=== PATIENT | female | born 1935 | race Caucasian/White ===

== ENCOUNTER 2018-04-22 11:43 | Inpatient (IN) | payer MEDICARE, BC ==
[~2018-04-22] VITALS: Ht 152.4 cm; Wt 87.1 kg
[~2018-04-22 11:43] MED LIST: ACCUPRIL5 MG PO; ADULT LOW DOSE81 MG PO; CLARITIN10 M2 PO; HYDROCHLOROTHIA25 MG PO; LOVASTATIN20 MG PO; VISION VITAMIN1 EACH PO; VITAMIN B-121000 MC1 PO; VITAMIN D31000 UNI1 PO
--- NOTE | 2018-04-29 12:08 | NUR ---
PATIENT HERE TODAY FOR PREADMISSION APPOINTMENT. SHE IS SCHEDULED TO HAVE A LEFT TOTAL KNEE ARTHROPLASTY DONE ON 05/17/18. SHE HAS A FRIEND (NAS) WHO WILL BE HERE TO TRANSPORT HER HOME AND STAY WITH HER FOR 2-3 WEEKS SINCE SHE LIVES ALONE. SHE STATES SHE HAS A HANDICAP ACCESSIBLE HOME WITH RAISED TOILETS, GRAB BARS, WALK IN SHOWER AND SHOWER BENCH AMONG OTHER THINGS. SHE STATES SHE HAS BEEN DOING PHYSICAL THERAPY AT [facility] BUT RECIEVED A PHONE CALL ABOUT A CLASS. I SPOKE TO HER ABOUT WHAT THE CLASS ENTAILED AND WHY SHE WAS GETTING THE PHONE CALL. CALL PLACED TO [facility] AND THE PATIENT WILL BE ATTENDING THE NEXT JOINT BOOT CAMP ON AT 530 PM. SHE ALSO INQUIRED ABOUT HAVING PHYSICAL THERAPY COME TO HER HOME AFTER SURGERY FOR 2 WEEKS. THIS INFORMATION WILL BE SENT TO DR VICKERS OFFICE AND DE PLANNING FOR FURTHER FOLLOW UP.
--- NOTE | 2018-05-04 09:46 | NUR ---
PER REQUEST OF PRE ADMIT NURSE I CALLED THE PT SHE REPORTEDLY HAD SOME QUESTIONS TO ASK ME. PT WAS CURIOUS ABOUT HAVING HOME HEALTH PT COME TO HER HOUSE FOR THE FIRST COUPLE OF WEEKS AFTER SHE HAS HER SURGERY. I EXPLAINED TO HER THAT IT WILL DEPEND ON HOW SHE IS DOING AFTER SURGERY AND WHILE SHE IS HERE IN THE HOSPITAL. TOLD HER WE WOULD TALK WHILE SHE IS HERE AND DETERMINE THEN IF THIS IS SOMETHING SHE NEEDS. ALSO GAVE PT THE PHONE # FOR CASE MANAGEMENT SO SHE COULD CALL IF SHE HAD ANY OTHER QUESTIONS PRIOR TO HER SURGERY.
[2018-05-17] MEDS ORDERED: METFORMIN HCL500 MG PO (06:17)
[2018-05-17] MEDS ORDERED: VIACTIV SOFT C1 EACH PO (06:18)
--- NOTE | 2018-05-17 09:05 | NUR ---
05/17/18 0905 Ludy Newton 0849 PT ARRIVED WITH NASAL AND ORAL AIRWAY IN PLACE, ON 10L VIA MASK. RESP EVEN AND UNLABORED. BP DECREASED LOGGING ASSISTANT AT BEDSIDE, MEDICATION GIVEN BY LOGGING ASSISTANT. PT NONAROUSABLE. 0855 PT BP INCREASING AND REMAINS NONAROUSABLE WITH AIRWAYS IN PLACE. 09 O2 DECREASED TO 6L VIA MASK. O2 SAT 100%.
--- NOTE | 2018-05-17 10:15 | NUR ---
PATIENT ARRIVED FROM PACU. REPORT FROM YARI COREY. VSS. PATIENT DROWSY BUT EASY TO AROUSE. PATIENT DENIES PAIN AND NAUSEA. ON 2LPM OXYGEN VIA NC SAT OF 96%. DAUGHTER, BRITTANI, AT BEDSIDE. DRESSING CDI. SPINAL AT T8. CRYOCUFF ON, SCDS ON, BIN HOSE ON. TOLERATING ICE WATER. CALL LIGHT WITHIN REACH. NO FURTHER REQUESTS AT THIS TIME.
--- NOTE | 2018-05-17 11:07 | OR ---
[facility] [address] [place] [address] Signed DATE OF OPERATION: 05/17/2018 SURGEON: Chele Kay MD PREOPERATIVE DIAGNOSIS: Severe degenerative joint disease, left knee. POSTOPERATIVE DIAGNOSIS: Severe degenerative joint disease, left knee. PROCEDURE PERFORMED: Left total knee arthroplasty with computer navigation. BAKE ROOM WORKER: PAU Freire. Corie was present in critical positioning, retraction, and wound closure. ANESTHESIA: Spinal with sedation. TOURNIQUET TIME: 55 minutes. BLOOD LOSS: Minimal. IMPLANTS: Tamie Triathlon size 3, 11 mm insert, and a 33 mm patella. BRIEF HISTORY: Rhonda is an 83-year-old female, who suffered from her arthritis and was not significantly improved with nonoperative treatment. Risks, benefits, and alternatives of operative treatment were discussed with her. DESCRIPTION OF PROCEDURE: Once medical clearance was obtained, she was taken to the operating room. After adequate anesthesia, she was placed on operating table. All downside pressure points well padded. The left leg was placed in well-padded proximal thigh tourniquet and placed on a hip bump. The leg was then prepped and draped in a standard sterile fashion, exsanguinated using an Esmarch bandage, and tourniquet inflated to 250 mmHg. Electronically Signed By: CHELE KAY MD 05/17/18 1107 PATIENT NAME: RHONDA JEROME OPERATIVE REPORT DATE OF : 35 REPORT #: [id number] PHYSICIAN: CHELE KAY MD PCP: JONO CORONA REPORT IS CONFIDENTIAL AND NOT TO BE RELEASED WITHOUT AUTHORIZATION [facility] [address] [place], [place] [address] Signed Standard anterior approach was taken through skin and subcutaneous tissue. Median parapatellar arthrotomy was performed. The infrapatellar fat pad was excised and the MCL was elevated of a sleeve around the posterior medial corner. The anterior horns of menisci were transected as was the ACL. The PCL was found to be intact. The navigation guide was pinned to the distal femur and the femur was registered with the computer. The cutting block was then pinned in neutral mechanical axis, and set to take 11 mm off. The distal femoral cut was made and the distal femur was sized to a 3. Osteophytes were removed as we went. The AP cutting block was then pinned in neutral alignment with epicondylar axis. The anterior, posterior, and chamfer cuts were made. Attention was then turned to the proximal tibia. Menisci removed to allow better visualization. The navigation guide was pinned to the proximal tibia and the tibia was registered with the computer. The cutting block was then pinned to 3 mm on the medial side and aligned with the mechanical axis. The cut was made with care taken to protect the patellar tendon and MCL. Bone was removed as were any meniscal remnants. Posterior osteophytes removed off the femur and posterior release was performed. The flexion and extension gaps were sized, found to be symmetric at 11 mm. The trials were then positioned, knee was taken through range of motion and found to be quite stable. The patella was cut, sized, and drilled for 32 mm patella. The knee was flexed. The drill holes were placed in the distal femur. The trials were removed. The proximal tibia was finished using the keel punch. The bone surfaces were pulse lavaged and packed with dry Ray-Courtney. Cement was mixed. When it reached to proper consistency, was placed all implants and all bone surfaces. Tibia was impacted into position first followed by the polyethylene. The femur was then impacted in position. The knee was extended and nicely loaded. All excess cement was removed as we went. The patella was clamped into position. Again any remaining cement was removed. The cement was allowed to harden. Once it hardened sufficiently, the knee was flexed. Any remaining overflow was removed using osteotomes. The knee was pulse lavaged at intervals throughout the procedure. Using a total of 3 L antibiotic irrigation. The periarticular soft tissues were injected using 100 mL ropivacaine and Toradol mixture. The arthrotomy was then closed using #1 0 Stratafix for the subcutaneous tissue, and erik for the skin. A ZACHARIAH wound VAC dressing was then placed and an Trev wrap. She was awakened and taken to the recovery room in satisfactory condition. All sponge, needle, and instrument counts were correct. Chele Kay MD BA/MODL /[id number] Electronically Signed By: CHELE KAY MD 05/17/18 1107 PATIENT NAME: RHONDA JEROME OPERATIVE REPORT DATE OF : 35 REPORT #: [id number] PHYSICIAN: CHELE KAY MD PCP: JONO CORONA REPORT IS CONFIDENTIAL AND NOT TO BE RELEASED WITHOUT AUTHORIZATION [address] [address] Signed Copies: ~ Electronically Signed By: CHELE KAY MD 05/17/18 1107 PATIENT NAME: RHONDA JEROME OPERATIVE REPORT DATE OF : 35 REPORT #: [id number] PHYSICIAN: CHELE KAY MD PCP: JONO CORONA REPORT IS CONFIDENTIAL AND NOT TO BE RELEASED WITHOUT AUTHORIZATION
--- NOTE | 2018-05-17 11:12 | NUR ---
VITAL SIGNS DUE. PATIENT RESTING WITH DAUGHTER AT BEDSIDE. VSS. PATIENT TOLERATING ICE WATER. DRESSING CDI, CRYOCUFF IN PLACE, BIN HOSE ON, SCDS ON, HEEL PROTECTORS ON. CALL LIGHT WITHIN REACH. NO FURTHER REQUESTS AT THIS TIME.
--- NOTE | 2018-05-17 13:01 | NUR ---
PATIENT IS RESTING WITH EYES CLOSED RR OF 14. EASILY ROUSABLE. VSS. PATIENT STATES SHE IS "NOT HUNGRY", DENIES PAIN AND NAUSEA. FRIEND AT BEDSIDE. CALL LIGHT WITHIN REACH. DRESSING CDI, CRYOCUFF ON, SCDS ON, BIN HOSE ON, HEEL PROTECTORS IN PLACE. NO FURTHER REQUESTS.
--- NOTE | 2018-05-17 13:42 | NUR ---
ASSESSMENT DONE. PATIENT DROWSY BUT EASILY AROUSABLE. PATIENT STATED SHE WAS NOT HUNGRY AND DID NOT NEED TO VOID. DENIES NAUSEA AND PAIN. DRESSING CDI, CRYOCUFF ON, SCDS ON, BIN HOSE ON, HEEL PROTECTORS ON. CALL LIGHT WITHIN REACH. FRIEND AT BEDSIDE. NO FURTHER REQUESTS AT THIS TIME.
--- NOTE | 2018-05-17 14:21 | NUR ---
PATIENT RESTING IN BED WITH EYES CLOSED. FAMILY BEDSIDE. PATIENT IS VERY TIRED. FRESHWATER GIVEN. CALL LIGHT IN REACH. NO FURTHER NEEDS AT THIS TIME.
--- NOTE | 2018-05-17 15:15 | NUR ---
PATIENT REPORTING NAUSEA AFTER PO ZOFRAN GIVEN. NOTIFIED. ORDER ENTERED FOR PROCHLORPERAZINE. MD ORDERED TORADOL BE HELD DUE TO CKD STAGE III.
--- NOTE | 2018-05-17 15:34 | NUR ---
MEDICATIONS DUE. PATIENT REPORTING NAUSEA, MEDICATION GIVEN (SEE MAR). PATIENT DROWSY, FALLS BACK TO SLEEP IMMEDIATELY, RESPIRATIONS 12. HOSPITALIST ROUNDED ON PATIENT. DAUGHTERS AT BEDSIDE. OXYGEN 94% ON 2 LPM. PATIENT TOLERATING SIPS OF WATER. DRESSING CDI, CRYOCUFF ON, SCDS ON, BIN HOSE ON, HEEL PROTECTORS ON. CALL LIGHT WITHIN REACH. NO FURTHER REQUESTS AT THIS TIME.
--- NOTE | 2018-05-17 15:58 | NUR ---
TALKED TO DR WHITE REGARDING PT. HE SAID TO GO AHEAD AND GIVE TORADOL AND WE WILL WATCH LABS. BUT TO GO EASY ON NARCOTICS FAMILY STATES THEY ARE SENSITIVE.
--- NOTE | 2018-05-17 16:09 | NUR ---
PATIENT HAS BEEN UP TO VOID, BEDSIDE COMMODE, WITH PHYSICAL THERAPY. UNABLE TO VOID. BLADDER SCAN 336 ML.
--- NOTE | 2018-05-17 17:31 | NUR ---
BLADDER SCANNED 453 ML. PATIENT AGREED TO HAVE A BISHOP PLACED. BISHOP PLACED PER PROTOCOL. PATIENT RESTING WITH EYES CLOSED RESPIRATIONS 12. CALL LIGHT WITHIN REACH. BED ALARM ON. DAUGHTER AT BEDSIDE. NO FURHTER REQUESTS AT THIS TIME.
--- NOTE | 2018-05-17 18:09 | NUR ---
PATIENT POST OP DAY 0 LEFT TOTAL KNEE. PATIENT DENIES PAIN. NAUSEA REPORTED PRN MEDICATIONS GIVEN. BISHOP PLACED FOR BLADDER SCAN OF 453 ML. ON 2 LPM OXYGEN VIA NC. PATIENT DROWSY. DAUGHTER, BRITTANI, AT BEDSIDE. HAS NOT USED CALL LIGHT. BED ALARM ON.
--- NOTE | 2018-05-17 18:36 | NUR ---
CALLED DR VICKERS AND UPDATED ON PATIENT'S STATUS. ASKED THAT WE NOT GIVE THE PATIENT ANYTHING ELSE. NO FURTHER ORDERS.
--- NOTE | 2018-05-17 18:45 | NUR ---
PATIENT IN BED RESTING WITH EYES CLOSED. PATIENT IS VERY SLEEPY AND WONT WAKE UP WHEN CONTROL SYSTEMS ENG IS TRYING TO TAKE VITALS. DAUGHTER BEDSIDE. FRESHWATER GIVEN. CALL LIGHT IN REACH. NO FURTHER NEEDS AT THIS TIME.
--- NOTE | 2018-05-17 19:15 | NUR ---
IN ROOM FOR REPORT, PT IS DROWSY. CALL LIGHT IS WITHIN REACH.
--- NOTE | 2018-05-17 21:45 | NUR ---
PT IS HAVING A DIFFICULT TIME TAKING IN DEEP BREATHS. SHE HAS RHONCHI IN HER UPPER LOBES. CALLED R.T. TO ASSESS WELL. SHE IS DROWSY AT THIS TIME. URINE OUT PUT FOR LAST 4 HOURS IS 75 DESPITE RECEIVING 125 MLS/HOUR. OTHER VS A WNL AND O2 SAT IS 94 AT THIS TIME. BED ALARM IS ON AND CALL LIGHT IS WITHIN REACH.
--- NOTE | 2018-05-17 23:15 | NUR ---
SPOKE WITH DR WHITE ABOUT PT'S CURRENT STATUS, MINDY OROSCO RN ALSO SPOKE WITH HIM TO REPORT HER ASSESSMENT WELL. SHE IS STILL AT 94% ON 2 LNC. ORDERS PLACED FOR 1L BOLUS. AND NPO AT THIS TIME, AND SUCTION PRN.
--- NOTE | 2018-05-17 23:41 | NUR ---
IN PT'S ROOM AT ADMINISTER 1L BOLUS OVER 2 HOURS. SHE IS STILL DROWSY AND MAKING RHONCHI SOUNDS. HER O2 SAT IS 97% ON 2 LNC. AT START OF BOLUS URINE OUT PUT RECORDED IS ANOTHER 20CC. EVENING PO MEDICATIONS HELD AT THIS TIME, WILL CONTINUE TO MONITOR.
--- NOTE | 2018-05-18 02:20 | NUR ---
IN ROOM TO CHECK I&O AND ASSESS PT. VS ARE WNL WITH THE EXCEPTION THAT A GOOD READING OF HER TEMP WAS DIFFICULT. TRIED 3 DIFF METHODS AND GOT 90-95 DEGREES. INCREASED TEMP OF ROOM AND WILL BRING WARM BLANKET. PT IS EASIER TO AROUSE AT THIS TIME AND ALERT AND ORIENTED. URINE OUT PUT WAS ONLY 100MLS SINCE 1 L BOLUS INFUSED. LIFE SKILLS SPECIALIST IS BLADDERSCANNING PT AND WILL CONTACT DR WHITE WITH UPDATE.
--- NOTE | 2018-05-18 03:00 | NUR ---
SOLUTION ARCHITECT REPORTED THAT SHE WAS NOT ABLE TO FIND URINE IN PT'S BLADDER WITH THE BLADDER SCAN, WILL CONTINUE TO MONITOR.
--- NOTE | 2018-05-18 03:11 | NUR ---
UPDATED DR WHITE ABOUT PT'S STATUS. HE SAID NO MORE BOLUS' AT THIS TIME. WILL CONTINUE TO MONITOR.
--- NOTE | 2018-05-18 05:48 | NUR ---
WOKE PT TO HANG NEW IV FLUIDS. SHE AWOKE EASILY. HAD HER COUGH TO GET MORE MUCUS UP. SHE HAS A LOOSE COUGH AND IS ABLE TO MOVE IT OUT ON HER OWN. SHE DENIES NEEDS AT THIS TIME.
--- NOTE | 2018-05-18 06:54 | NUR ---
UPDATED DR VICKERS ON PT'S STATUS THROUGH THE NIGHT. OK TO LEAVE BISHOP AT THIS TIME UNTIL URINE OUTPUT INCREASES AND OK TO GIVE PO MEDS IF PT IS ABLE TO TAKE THEM.
--- NOTE | 2018-05-18 07:23 | NUR ---
MET WITH PT VERY BRIEFLY STAFF CAME TO FINISH PREPPING PT FOR SURGERY. EXTENDED A BLESSING, AND GAVE HOSP DIRECTIONS TO DAUGHTER BRITTANI. WILL FOLLOW NEEDED
--- NOTE | 2018-05-18 07:30 | NUR ---
THIS RN JUST ARRIVING ON SHIFT AND TAKING OVER THIS PT'S CARE; AT BEDSIDE REPORT AT THIS TIME PT IS AWAKE AND ALERT BUT HER BREATHING SOUNDS EXTREMELY CONGESTED, WET AND MOIST. THIS SOUND IS AUDIBLE JUST STANDING AT THE BEDSIDE, NOT EVEN REQUIRING A STETHOSCOPE TO HEAR THE WETNESS AROUND HER LUNGS. THIS RN WILL CLOSELY MONITOR AND FOLLOW UP ON THIS.
--- NOTE | 2018-05-18 08:45 | NUR ---
PT IN BED AWAKE AND ALERT AT THIS TIME WITH DAUGHTER AT BEDSIDE. PT IS A/O X4 BUT SHE STATES THAT SHE "STILL FEELS HAZY" WHEN I ASKED IF SHE FELT LIKE SHE WAS HAVING ANY CONFUSION. SHE ALSO TOLD ME SHE FEELS LIKE SHE'S STRUGGLING TO FIND SOME OF HER WORDS AT TIMES. MEDS GIVEN. ASSESSMENT COMPLETED. PT'S LUNG SOUNDS RHONCI WITH A MOIST, CONGESTED SOUNDING COUGH. SHE IS, HOWEVER, IMPROVED FROM THIS AM AT 0730 WHEN I CAME ON SHIFT. EXTENSIVE EDUCATION GIVEN ON IMPORTANCE OF DEEP BREATHING AND COUGHING. PT STATES SHE HAS SPUTUM WHEN SHE COUGHS AND THAT SHE SWALLOWS IT. THIS RN GAVE PT AN IS AND TAUGHT PT HOW TO USE THIS AND HOW FREQUENT. PT ABLE TO DEMONSTRATE BACK BUT NEEDS REMINDING TO USE IT; PT ABLE TO TAKE 10 DEEP BREATHES REACHING 1000. BISHOP CATH IN PLACE, DRAINING MINIMAL ORANGE, CLEAR URINE. BISHOP CARE COMPLETED AND EDUCATION GIVEN ON INFECTION PREVENTION TO PT AND DAUGHTER. D5NS WITH 20MEQ OF KCHLOR RUNNING AT 125 INTO RIGHT HAND PIV WITH NO COMPLICATIONS. PT HAVING NO NAUSEA, SO DIET IS ADVANCED. LEFT KNEE INCISION WNL- PREVANA IN PLACE; DRSG C/D/I, SCANT, DRIED SANG OUTPUT IN LOWER PORTION OF DRSG. KENNY WRAP IN PLACE WELL CRYOCUFF. PT STATES SHE'S HAVING SOME NUMBNESS IN HER LEG STILL. BILATERAL ANTIEMBOLISM STOCKINGS IN PLACE WELL SCD'S. CALL LIGHT WITHIN REACH. FALL PRECAUTIONS IN PLACE. WILL CONTINUE TO MONITOR.
--- NOTE | 2018-05-18 09:45 | NUR ---
PT SITTING UP IN CHAIR AT THIS TIME AFTER AMBULATING HALLWAY/THERAPY WITH PT. PT HAS NO C/O PAIN, NO N/V. PT STATES THAT "THE ROOM IS SPINNING" AND THAT SHE FEELS DIZZY. COUGH AND DEEP BREATHING COMPLETED WITH MY ENCOURAGEMENT WELL USING IS. DAUGHTER AT HER SIDE. LEGS ELEVATED, CRYOCUFF IN PLACE. CALL LIGHT WITHIN REACH. WILL CONTINUE TO MONITOR.
--- NOTE | 2018-05-18 10:01 | NUR ---
THIS RN CALLED TO ROOM BY PT'S DAUGHTER DUE TO PT'S EMESIS OCCURRENCE. THIS RN ASSESSED PT; PT STATED THAT SHE WASN'T FEELING NAUSEOUS AND THAT SHE VOMITTED AFTER TAKING A DRINK OF HER COFFEE. EMESIS WAS ABOUT 100 CC OF ORANGE, CLEAR FLUID. PT HADN'T EATEN ANYTHING YET, SHE STATED SHE JUST DRANK SOME COFFEE. PRN ZOFRAN GIVEN. PT STATES SHE FEELS OKAY, THAT THE DIZZINESS IS IMPROVING. REMAINS UP IN CHAIR. ROOM AIR. CALL LIGHT WITHIN REACH. WILL CONTINUE TO MONITOR.
--- NOTE | 2018-05-18 10:22 | NUR ---
MED REC COMPLETE WITH [facility] REFILL HISTORY, [facility] FAMILY MEDICINE DR NOTE, AND PATIENT INTERVIEW.
--- NOTE | 2018-05-18 10:23 | NUR ---
PATIENT SITTING IN CHAIR. PATIENT COMPLAINS OF BEING DIZZY, RN NOTIFIED. CRYO FILLED. CALL LIGHT IN REACH. NO FURTHER NEEDS AT THIS TIME.
--- NOTE | 2018-05-18 11:00 | NUR ---
THIS RN AND PSYCHIATRIC SECRETARY ASSISTED PT BACK TO BED. SHE STATES SHE FEELS DIZZY STILL AND REQUESTING TO LAY DOWN. PT ASSISTED BACK TO BED WITH WALKER. ONCE IN BED, PT'S SCD'S APPLIED, CRYOCUFF IN PLACE. NO FURTHER QUESTIONS OR CONCERNS. CALL LIGHT WITHIN REACH. FALL PRECAUTIONS IN PLACE. WILL CONTINUE TO MONITOR.
--- NOTE | 2018-05-18 12:40 | NUR ---
PT NAPPING HER IN BED AT THIS TIME. PT APPEARS COMFORTABLE WITH NO S/S OF DISCOMFORT OR PAIN. ROOM AIR. NO BREATHING OR SOB ISSUES. BREATHE SOUNDS LESS CONGESTED THAN THIS AM. SCD ON. CRYOCUFF ON. CALL LIGHT WITHIN REACH AND FALL PRECAUTIONS IN PLACE. WILL CONTINUE TO MONITOR.
--- NOTE | 2018-05-18 13:42 | NUR ---
PT RESTING IN BED-ALERT, ORIENTED AND SUPPORTED BY HER DAUGHTER BRITTANI. HAD PLEASANT VISIT PT STATED SHE HAD NO PAIN AND SLEPT WELL. PREPPING FOR PM P.T. PT REQUESTED PRAYER, WILL FOLLOW NEEDED
--- NOTE | 2018-05-18 13:56 | NUR ---
PATIENT LAYING IN BED. PATIENT SAID SHE COULD NOT EAT LUNCH BECAUSE SHE WAS NAUSEAS. PATIENT BLOOD PRESSURE WAS LOW, RN NOTIFIED. FRESHWATER GIVEN. CRYO FILLED. CALL LIGHT IN REACH. NO FURTHER NEEDS AT THIS TIME.
--- NOTE | 2018-05-18 14:45 | NUR ---
PT UP IN CHAIR AT THIS TIME AFTER WORKING WITH PT. AWAKE, A/O, NO C/O PAIN AND NO NAUSEA OR EMESIS OCCURRENCES SINCE THIS AM. ASSESSMENT COMPLETED AND I NOTICE HER UOP HAS NOT IMPROVED OR INCREASED SINCE THIS AM WHEN IT WAS NOTED. I WILL INFORM DR. WHITE OF THIS LOW OUTPUT. BISHOP IN PLACE AND NO KINKS PRESENT IN TUBING. CALL LIGHT WITHIN REACH. CRYOCUFF STILL IN PLACE. WILL CONTINUE TO MONITOR.
--- NOTE | 2018-05-18 15:00 | NUR ---
THIS RN CALLED AND NOTIFIED DR. WHITE OF PT'S LOW UOP IN BISHOP THROUGHOUT THE SHIFT UNITL THIS POINT. VERBAL ORDER RECEIVED AND READ BACK TO INFUSE 500 ML LR FLUID BOLUS.
--- NOTE | 2018-05-18 16:08 | NUR ---
PT STILL SITTING UP IN CHAIR AT THIS TIME; LR BOLUS STILL INFUSING INTO R ARM PIV. WILL CONTINUE TO CLOSELY MONITOR AND FOLLOW UP WITH URINE OUTPUT. DR. WHITE AWARE-- WILL INFORM HIM IF THERE'S ANY SUCCESS/ OR IF NO INCREASE IN OUTPUT AFTER BOLUS. PT HAS NO QUESTIONS OR CONCERNS AT THIS TIME. CALL LIGHT WITHIN REACH. WILL CONTINUE TO MONITOR.
--- NOTE | 2018-05-18 17:00 | NUR ---
500 ML FLUID BOLUS OF LR HAS COMPLETED AT THIS TIME. THIS RN NOTICES THAT THE PIV THAT HAS BEEN USED ALL DAY HAS STARTED TO LEAK. PT NEEDS NEW PIV. LAB HAS ARRIVED AND IS AT BEDSIDE ATTEMPTING TO COLLECT BLOOD BUT HAVING DIFFICULTY WITH PT'S VEINS. PER ORDER I ALSO MEASURED AND COLLECTED THE URINE IN PT'S BISHOP TO ASSESS SUCCESS OF FLUID BOLUS. 90 ML WAS EMPTIED FROM BISHOP, AND URINE IS CLEAR BUT RED. PT IS HAVING NO PAIN, AND BISHOP IS NOT KINKED. I AM GOING TO BLADDER SCAN PT ONCE LAB IS DONE IN ROOM TO ASSESS FOR ANY URINE RETENTION. I WILL ALSO INFORM DR. WHITE OF LOSS OF IV ACCESS AT THIS TIME, THAT ONCE WE REESTABLISH ACCESS, FLUIDS WILL BE RESTARTED AT 75 ML/HOUR ORDERED, AND WILL NOTIFY HIM OF URINE COLOR, OUTPUT AND BLADDER SCAN RESULT. CALL LIGHT WITHIN REACH AND VISITORS AT BEDSIDE.
--- NOTE | 2018-05-18 17:55 | NUR ---
BLADDER SCAN 0 ML SO PT NOT RETAINING URINE. NURSE USABILITY STRATEGIST JUST ENTERED SARMAD TO ATTEMPT PIV
--- NOTE | 2018-05-18 18:11 | NUR ---
THIS RN JUST NOTIFIED DR. SANTIAGO'S ON PT CONDITION
--- NOTE | 2018-05-18 18:17 | NUR ---
PATIENT SITTING UP IN CHAIR FAMILY BEDSIDE. CALL LIGHT IN REACH. NO FURTHER NEEDS AT THIS TIME.
--- NOTE | 2018-05-18 18:17 | NUR ---
DR. WHITE UPDATED BY THIS RN ON THE PHONE AT THIS TIME. PER DR. WHITE'S REQUEST, [facility] RN TO UPDATE HIM TONIGHT AT 2200 WITH URINE OUTPUT STATUS.
--- NOTE | 2018-05-18 18:26 | NUR ---
PT VS STABLE TODAY. PT PLEASANT, CALM AND COOPERATIVE BUT FORGETFUL, INTERMITTENT EPISODES OF DIZZINESS. X1 EMESIS THIS AM BUT SINCE IMPROVED. ROOM AIR. LEFT KNEE INCISION DRSG IN PLACE AND WNL; SOME POST OP SWELLING AND CRYOCUFF IN PLACE. SCD WHILE IN BED. ANTIEMBOLISM STOCKINGS IN PLACE. LUNGS SOUNDS IMPROVED BUT STILL WET AND GONGESTED- PRODUCTIVE COUGH PRESENT. ENCOURAGE IS USE. PT WEAK AND UNSTEADY ON FEET. REQUIRES X1 ASSIST WITH WALKER. PT'S UOP REMAINS ON THE LOWER END- 500 ML BOLUS LR GIVEN WITH SOME SUCCESS OF INCREASED UOP. BLADDER SCAN WAS 0 ML- NO RETENTION. URINE SENT TO LAB. REPEAT BMP DRAWN BY LAB THIS EVENING. THIS RN NOTICED BOLUS FINISHED HER PIV STARTED TO LEAK- PT REQUIRES A PIV TO BE PLACED STILL- PT VERY HARD STICK. AFTER PIV IS ESTABLISHED, SHE NEEDS FLUIDS HOOKED UP AND RAN AT 75 ML/HR. PER DR. WHITE, NOC RN TO UPDATE HIM AT 2200 TONIGHT WITH URINE OUTPUT STATUS. I WILL PASS THIS ON IN HAND OFF REPORT. CHARGE NURSE WILL BE NOTIFIED OF THIS WELL IN CHARGE SHIFT REPORT. PT UP IN CHAIR AT THIS TIME WITH FAMILY AT BEDSIDE. CALL LIGHT WITHIN REACH. CRYOCUFF ON. FALL PRECAUTIONS IN PLACE. WILL CONTINUE TO MONITOR.
--- NOTE | 2018-05-18 19:10 | NUR ---
Report received from YARI Zaman. Pt resting up in chair. pt denies pain or any other concerns or requests. H20 and call light in reach and family at bedside. cryo cuff in place.
--- NOTE | 2018-05-18 22:05 | NUR ---
Dr Pizano notified of pt's urine output of 200mls since 1699. no new orders received. Pt denies sob, pain or nausea.
--- NOTE | 2018-05-18 22:57 | NUR ---
V/S AND I&O DONE AND CHARTED. TOOL CLERK MINDY AND I HELPED PATIENT GO TO BED FROM CHAIR. CRYO CHECKED STILL HAVE ICE. SCD, HEEL PROTECTOR AND CRYO ARE BACK ON. CALL LIGHT AND SIDE TABLE WITHIN REACH.
--- NOTE | 2018-05-19 01:10 | NUR ---
pt resting supine in bed, apppears to be sleeping comfortably with respirations even and unlabored on RA. IV maintenance fluids infusing. pt alert to voice. denies pain or nausea. CMS intact to left foot. call light in reach. pt provided with warm blanket per request. stockings, SCD's, heel protectors and cryo cuff remain in place and call light and h20 in reach. No further concerns or requests voiced.
--- NOTE | 2018-05-19 05:42 | NUR ---
Pt appeared to have slept well through majority of the night. Pt has denied pain or nausea and has tolorated scd's, heel protectors and cryo cuff. Brisk cap refill to left LE with +1 pedal pulse. pt has ambrocio cath in place that has been draining quantity sufficient clear ervin urine output. pt has d5ns 20K+ maintenance fluids infusing. dsg with portable wound vac intact to left knee with a small amount of shadowing to distal aspect of dressing.
[2018-05-19] MEDS ORDERED: XARELTO10 MG PO (10:17)
[2018-05-19] MEDS ORDERED: NEURONTIN300 MG PO (10:18)
[2018-05-19] MEDS ORDERED: HYDROMORPHONE HC4 MG PO (10:18)
[2018-05-19] MEDS ORDERED: MAPAP500 M1 PO (10:18)
[2018-05-19] MEDS ORDERED: SENNA-TIME S T1 EACH PO (10:19)
--- NOTE | 2018-05-19 10:20 | NUR ---
ASSISTED STUDENT YARI LORD IN REMOVAL OF BISHOP. PT TOLERATED WELL. STUDENT WILL CHART REMOVAL.
--- NOTE | 2018-05-19 13:30 | NUR ---
IV DC'D IN THE RIGHT HAND TIP INTACT SOME SWELLING NOTED.
--- NOTE | 2018-05-19 13:46 | NUR ---
PT PLANNING ON DC TODAY-SEEMED VERY EXCITED. HER DAUGHTER BRITTANI IS WITH HER AND WILL TAKE PT HOME. EXTENDED A BLESSING, WILL FOLLOW NEEDED
--- NOTE | 2018-05-19 13:49 | NUR ---
PER PT REQUEST I SENT CLINICALS TO [facility] THIS IS WHERE PT HAD BEEN DOING HER PT, SHE DID GO TO THE [facility] AT [facility] OP PT, BUT WANTS TO CONT HER PT AT [facility]. THEREFORE I FAXED CLINICALS TO [facility] INCLUDING FACE SHEET, H AND P, OP NOTES, CONSULT PROG NOTES, PT EVAL AND NOTES. OT EVAL. CALLED AND SPOKE WITH THEM, PT HAS APPT MADE FOR AND NEXT WEEK. RECIEVED FAX CONFIRMATION OF THIS.
--- NOTE | 2018-05-19 13:55 | NUR ---
PATIENT AND HER DAUGHTER GIVEN D/C INSRUCTIONS, QUESTIONS ANSWERED AND CRYO CUFF FILLED WITH ICE. ADVANCE DIRECTIVE GIVEN BACK TO THE PATIENT ALONG WITH A DNR FORM.
--- NOTE | 2018-05-20 07:51 | DS ---
[facility] [address], [place] [address] Signed ADMISSION DATE: 05/17/2018 DISCHARGE DATE: 05/19/2018 ADMISSION DIAGNOSIS: DJD left knee. DISCHARGE DIAGNOSIS: DJD left knee. PROCEDURE PERFORMED DURING THIS HOSPITALIZATION: Left total knee arthroplasty. BRIEF HISTORY: Rhonda is an 83-year-old female with progressive worsening of osteoarthritis. She had failed nonoperative treatment and wished to proceed with replacement. Risks and benefits of operative treatment were discussed with her. She elected to proceed. DESCRIPTION OF PROCEDURE: Once consent was obtained, she was taken to operating room. After adequate anesthesia, she was placed on operating room table. She underwent the above-named procedure, and tolerated this well. She was taken to the recovery room and subsequently to the orthopedic floor. Initially, she was fairly somnolent, but she did wake up, and did well with physical therapy. She is able to ambulate up and down the hallway and up and down stairs by the day of discharge. She had some low urine output and this resolved with fluid resuscitation. She did well with pain control using 1-2 mg of Dilaudid p.o. q.4 hours p.r.n. She was kept on DVT prophylaxis of SCDs, TEDs and Xarelto 10 mg p.o. daily. She will be continued on Xarelto for another three days and then switched to a daily aspirin. She will follow up with me on Thursday to remove the wound VAC dressing. This has kept her wound clean and dry throughout. She will notify me of any problems in the interim. Chele Kay MD BA/JERSON /[id number] Electronically Signed By: CHELE KAY MD 05/20/18 0751 PATIENT NAME: RHONDA JEROME HUSSEIN DISCHARGE SUMMARY DATE OF : 35 REPORT #: [id number] PHYSICIAN: CHELE KAY MD PCP: JONO CORONA REPORT IS CONFIDENTIAL AND NOT TO BE RELEASED WITHOUT AUTHORIZATION [address] [address] Signed Copies: ~ Electronically Signed By: CHELE KAY MD 05/20/18 0751 PATIENT NAME: RHONDA JEROME JOVITA DISCHARGE SUMMARY DATE OF : 35 REPORT #: [id number] PHYSICIAN: CHELE KAY MD PCP: JONO CORONA REPORT IS CONFIDENTIAL AND NOT TO BE RELEASED WITHOUT AUTHORIZATION
== END 2018-05-19 13:53 | disposition home or self-care (01) | DRG 470 ==
LOC: DSVR 05-17 05:45 → MS 05-17 05:45
PROVIDERS: ADMIT Specialist
PROC: 8E0YXBZ Computer Assisted Procedure of Lower Extremity (ICD-10-PCS; 2018-05-17)
PROC: 3E0T3BZ Introduction of Anesthetic Agent into Peripheral Nerves and Plexi, Percutaneous Approach (ICD-10-PCS; 2018-05-17)
PROC: 0SRD0J9 Replacement of Left Knee Joint with Synthetic Substitute, Cemented, Open Approach (ICD-10-PCS; principal; 2018-05-17 06:45)
DX: M17.12 Unilateral primary osteoarthritis, left knee (principal); G89.18 Other acute postprocedural pain; R40.0 Somnolence; T43.3X5A Adverse effect of phenothiazine antipsychotics and neuroleptics, initial encounter; R34 Anuria and oliguria; N18.3 Chronic kidney disease, stage 3 (moderate); I12.9 Hypertensive chronic kidney disease with stage 1 through stage 4 chronic kidney disease, or unspecified chronic kidney disease; E66.01 Morbid (severe) obesity due to excess calories; E78.5 Hyperlipidemia, unspecified; R73.03 Prediabetes; Y92.239 Unspecified place in hospital as the place of occurrence of the external cause; Z79.84 Long term (current) use of oral hypoglycemic drugs; Z79.82 Long term (current) use of aspirin; Z79.899 Other long term (current) drug therapy; Z79.1 Long term (current) use of non-steroidal anti-inflammatories (NSAID); Z68.37 Body mass index [BMI] 37.0-37.9, adult
CPT/HCPCS: 36415; 64448; 76942; 80048; 82570; 84300; 85025; 94762; 97110; 97116; 97161; 97165; 97530; C1713; C1776; G8978; G8979; G8987; G8989; J0690; J0735; J0780; J1100; J1885; J2250; J2274; J2405; J2704; J2765; J3010; J7120